=== PATIENT | male | born 1965 | race Caucasian/White ===

== ENCOUNTER 2025-04-19 12:03 | Emergency (ER) | payer MEDICARE, SELFPAY ==
[2025-04-19 12:21] VITALS: BP 133/77
[2025-04-19 12:43] LABS: Hematocrit 44.1 % (39.0-52.0); Hemoglobin 14.7 g/dL (13.0-18.0); Mean Corp Hgb Conc. 33.3 g/dL (33.0-37.0); Mean Corpuscular Volume 88.0 fL (80.0-94.0); Nucleated Red Blood Cells % 0 % (-); Platelet Count 375 10^3/uL (130-400); Red Cell Dist. Width 13.8 % (11.5-14.5)
[2025-04-19 13:08] LABS: ALT (SGPT) 15 U/L (0-50); AST (SGOT) 16 U/L (17-59); Albumin 5.2 g/dl (3.5-5.0); Alkaline Phosphatase 53 U/L (38-126); Blood Urea Nitrogen 21 mg/dl (9-20); Calcium 10.4 mg/dl (8.4-10.2); Carbon Dioxide 28 mmol/L (22-30); Chloride 102 mmol/L (98-107); Glucose 150 mg/dl (70-99); Potassium 4.5 mmol/L (3.5-5.1); Sodium 141 mmol/L (135-145); Total Protein 8.1 g/dl (6.3-8.2); eGFR > 60.00
--- NOTE | 2025-04-19 13:22 | ED.GENMED ---
History of Present Illness
General
Chief Complaint: Failure to Thrive
Source: patient and family
Exam Limitations: none
Time Seen by Provider: 04/19/25 13:05
Nursing documentation reviewed up to this point in time: agreed with
History of Present Illness
History of Present Illness:
59-year-old male with a past medical history of seizures on Briviact presents to the ER with his brother and [id number] for evaluation of fatigue, poor appetite and depression. It sounds like patient had been homeless was taken in by his brother
last year. Brother says that they tried to get him on his feet, job at [employer] and helped him get insurance, get an ID. He said that he had been doing generally well for a bit and has been living in his brother's finished basement. Recently
patient has been become increasingly withdrawn. Family says that he has not left the basement. Basically sits in a chair all day according to his family. 3 days ago stopped eating they feel he has been increasingly depressed which prompted ER
visit.
The patient says that he has been feeling generally fatigued and down although he is not very specific. He denies feeling physically unwell�denies having a fever, headache, chest pain, shortness of breath, abdominal pain, nausea, vomiting, diarrhea
or any other acute physical symptoms. He says he does not have much of an appetite. It sounds like he has been down in part due to issues at work�he describes an incident where his boss essentially laid him off. Apparently he uses occasional
marijuana but no other drugs or alcohol reported. Denies suicidality.
Past History
Past History
ED Past Medical History: None
ED Past Surgical History: None
Social History
Tobacco: Non-smoker
Alcohol: None
Review of Systems
Review of Systems
All Other Systems: ROS reviewed and negative except as documented in HPI and ROS
Constitutional: Reports fatigue; Denies fever
Respiratory: Denies cough or trouble breathing
Cardiac: Denies chest pain
ABD/GI: Reports anorexia (Poor appetite); Denies abdominal pain, nausea, vomiting or diarrhea
: Denies flank pain
Musculoskeletal: Denies neck pain or back pain
Neurological: Denies dizzy or headache
Psychiatric: Reports depression; Denies suicidal
Phy Exam
Physical Exam
Physical Exam:
General: Awake, alert, oriented x3; unkempt, not in no acute distress
Head: Normocephalic, atraumatic
Eyes: Conjunctiva normal, EOMI, pupils equal round reactive to light bilaterally
Throat: Airway intact, handling secretions, poor dentition
Neck: Trachea midline, supple without meningismus
Lungs: Clear to auscultation bilaterally, no wheezing, rales, rhonchi
Heart: Regular rate and rhythm, no murmurs, gallops, or rubs
Abd: Soft, non distended, nontender
Neuro: Cranial nerves grossly intact, speech fluid, motor and sensory grossly intact
Extremities: No edema in extremities, warm and well-perfused
Psych: Depressed mood, withdrawn affect
Scores
Heart Failure Risk
Heart Failure Risk Score: Not Applicable
Heart Score for Chest Pain Patients
STEMI patient?: Not applicable
Withdrawal Assessment of Alcohol
Withdrawal Assessment Completed?: Not applicable
Course
Orders/Labs/Results
Orders:
Orders
04/19/25 12:33
Case Management Consult ONCE
Case Management Consult: Discharge Planning
Requested By:: NURSING
Comment: PT. is non compliant with his meds. Hx seizures, needs placement. Mental status change. Family
@ bedside.
Acetaminophen Urgent
Alcohol Urgent
Complete Blood Count/With Diff Urgent
Comprehensive Metabolic Panel Urgent
Salicylate Urgent
TSH Reflex To Free T4 Urgent
Comment: ADD ON
04/19/25 12:40
Electrocardiogram (*1) Urgent
Reason for Study: Fatigue / Weakness
EKG- Treatment ONCE
04/19/25 13:21
Crisis Consult Routine
Reason for Consult: depression, failure to care for self
04/19/25 13:29
Encourage PO Hydration-Treatme ONCE
04/19/25 13:34
Crisis Consult Urgent
Reason for Consult: non compliant with psych meds unhoused.
04/19/25 13:42
Drug Screen, Urine [Urine Drug Abuse Screen] Urgent
Date Specimen was Collected: 04/19/25
Time Specimen was Collected: 13:23
04/19/25 14:28
Add On- LAB Urgent
Tests Added?: Tylenol level, ASA level, TSH reflex to free T4, ETOH level
Abnormal Lab Results
04/19/25 04/19/25
12:33 13:42
Absolute Monos (auto) 0.7 H 10^3/uL
(0.1-0.6)
BUN 21 H mg/dl
(9-20)
Glucose 150 H mg/dl
(70-99)
Calcium 10.4 H mg/dl
(8.4-10.2)
AST 16 L U/L
(17-59)
Albumin 5.2 H g/dl
(3.5-5.0)
Salicylates < 1.0 L mg/dl
(2.0-20.0)
Acetaminophen < 10 L ug/ml
(10-30)
U Marijuana (THC) Screen Positive H
(Negative)
04/19/25 12:33
04/19/25 12:33
Vital Signs
Initial and Last Documented VS:
Initial Vital Signs
Temp Pulse Resp BP Pulse Ox
36.7 C 72 16 133/77 99
04/19/25 12:21 04/19/25 12:21 04/19/25 12:21 04/19/25 12:21 04/19/25 12:21
Last Documented Vital Signs
Temp Pulse Resp BP Pulse Ox
36.7 C 72 16 133/77 99
04/19/25 12:21 04/19/25 12:21 04/19/25 12:21 04/19/25 12:21 04/19/25 13:29
MDM/Problems Addressed
Differential Diagnosis Includes:
Depression, electrolyte abnormality, thyroid dysfunction, anemia, drug/alcohol use
MDM/Problems Addressed:
59-year-old male presents for fatigue, poor appetite and family says becoming increasingly depressed and withdrawn. Vitals and exam as above. Family offers that this is not the first time this has happened and they feel that most of his symptoms
are from depression. Vitals and exam as above. Will plan to check medical screening labs including CBC and a CMP, tox screen/UDS, alcohol level, EKG. Case discussed with our crisis team for assessment. Encourage p.o. intake. Continue to monitor
here.
Labs reviewed: CBC and CMP no clinically significant abnormalities. UDS shows positive for marijuana but no other illicit substances. Tylenol and salicylate levels negative. Alcohol level negative. Patient stable on ED observation, suspect that
this is acute depressive episode and given failure to care for himself I do think inpatient psychiatric treatment is warranted. Patient evaluated by crisis, plan to place for inpatient on voluntary basis.
Per crisis patient excepted at [facility]. Monitor pending transport.
*Pulse Oximetry
SaO2: 99
Oxygen Mode of Delivery: Room air
Patient hypoxic: no (99%)
*EKG
Interpreted by ED Provider?: Yes
Heart Rate: 65
Rate: normal
Rhythm: sinus
Casar: normal axis
Interval: normal interval
QRS Pattern: normal QRS
Ischemia: no ischemia
*Critical Care Note
Total Time (30-74mins, 75-104mins- exclusive of procedures): Not Applicable
Data Reviewed
Review of Other/Old Records Reveals: Records
Source: patient and family
Patient Management
Discussion with other providers: Other (Discussed with crisis staff)
Escalation/DeEscalation of care consider admission/obs:
Inpatient psychiatric treatment indicated
ED Attending Note
-
Portions of this chart may have been created with voice recognition software.� Occasional wrong word or��sound alike� substitutions may have occurred due to the inherent limitations of voice recognition software.
Discharge Plan
Departure
Patient Disposition: Psych Facility
Date of Disposition: 04/19/25
Time of Disposition: 15:50
Discharge Problem:
Depression
Prescriptions:
No Action
acetaminophen 325 mg Tablet
650 mg PO Q4HPRN PRN (Reason: Headache) 30 Days Qty: 30 0RF
Referrals:
Shiv Alcantar MD [Family Provider, Family Practice]
Interventions
Interventions:
*Risk Screen - Suicide Last Done: 04/19/25 12:08
*General Assessment Last Done: 04/19/25 13:50
*Neglect/Abuse Screening Last Done: 04/19/25 12:08
*ED- Fall Risk Assessment Last Done: 04/19/25 13:50
*ED COVID-19 Vaccine History Last Done: 04/19/25 13:50
Discharge Date and Time
Print Language: BRUNEIAN
--- NOTE | 2025-04-19 13:47 | CM ---
Addendum entered by Estela Cunningham 04/19/25 16:53:
Per ED MD note, pt accepted to [facility], awaiting transport.
Original Note:
Received consult, chart reviewed and I met with pt, his brother and CURTIS bedside in ED. For the past 1.5 years pt has been living in his brother's basement. His brother helped him get ID and Medical Assistance. Pt did have a job at [employer] but was
laid off.
Pt's brother and CURTIS state they have given him resources for jobs, also state he has a correctional casework specialist through [employer] who has reached out but has not connected with pt.
Pt denies wanting to hurt himself, states he was just hoping 'to bounce back'. Has not sought any mental health services, his brother asked about [facility]. Aliya RN will place Crisis consult.
I told pt and his family I can provided resources for him to look for housing. Provided [email or web address] and [facility] contact information.
Awaiting Crisis consult.
[2025-04-19 14:48] LABS: Acetaminophen < 10 ug/ml (10-30); Salicylate < 1.0 mg/dl (2.0-20.0)
== END 2025-04-19 18:26 ==
LOC: EMR 12:03
PROVIDERS: Emergency Medicine; EMERGENCY PHYSICIAN Emergency Medicine; FAMILY PHYSICIAN Family Medicine
DX: F32.A Depression, unspecified (principal); R62.7 Adult failure to thrive; F12.90 Cannabis use, unspecified, uncomplicated; R56.9 Unspecified convulsions; Z91.148 Patient's other noncompliance with medication regimen for other reason
CPT/HCPCS: 99285; 80053; 80143; 80179; 80306; 82077; 84443; 85025; 93005